=== PATIENT | female | born 1965 | race Caucasian/White ===

== ENCOUNTER 2017-07-28 23:24 | Emergency (ER) | payer BC ==
[~2017-07-28] VITALS: Ht 175.3 cm; Wt 84.4 kg
[~2017-07-28 23:24] MED LIST: AZITHROMYCIN250 MG ORAL; EFFEXOR XR75 MG ORAL; IBUPROFEN600 MG ORAL; SIMVASTATIN5 MG ORAL
[2017-07-28 23:45] VITALS: BP 122/88
[2017-07-29 00:38] LABS: APPEARANCE,URINE CLEAR; KETONES,URINE 2+ (NEGATIVE); LEUKOCYTE ESTERASE ,URINE NEGATIVE (NEGATIVE); NITRITE,URINE NEGATIVE (NEGATIVE); PH,URINE 5 (4.5-8.0); PROTEIN,URINE NEGATIVE (NEGATIVE); UROBILINOGEN,URINE NORMAL MG/DL (0.0-1.0)
[2017-07-29 00:45] VITALS: BP 142/90
[2017-07-29 00:46] LABS: BASOPHILS % (AUTO) 0.7 % (0.0-2.0); EOSINOPHILS % (AUTO) 2.3 % (0.0-3.0); LYMPHOCYTES % (AUTO) 23.7 % (20.0-45.0); MEAN CORPUSCULAR HEMOGLOBIN 33.1 PG (27.0-31.0); MEAN CORPUSCULAR HGB CONC 35.2 G/DL (32.0-36.0); MEAN CORPUSCULAR VOLUME 94 FL (80-99); MEAN PLATELET VOLUME 6.4 FL (6.5-10.1); MONOCYTES % (AUTO) 5.2 % (1.0-10.0); NEUTROPHILS % (AUTO) 68.1 % (45.0-75.0); PLATELET COUNT 309 K/UL (150-450); RED BLOOD COUNT 4.35 M/UL (4.20-5.40); RED CELL DISTRIBUTION WIDTH 11.2 % (11.6-14.8); WHITE BLOOD COUNT 16.4 K/UL (4.8-10.8)
[2017-07-29 00:53] LABS: SQUAMOUS EPITHELIAL CELL,UR OCCASIONAL /LPF (NONE/OCC); WBC,URINE 0 /HPF (0 - 2)
[2017-07-29 01:00] LABS: ALANINE AMINOTRANSFERASE 23 U/L (12-78); ALBUMIN/GLOBULIN RATIO 1.1 (1.0-2.7); ANION GAP 12 mmol/L (5-15); ASPARTATE AMINO TRANSFERASE 19 U/L (15-37); CALCIUM 8.3 MG/DL (8.5-10.1); CARBON DIOXIDE 23 MMOL/L (21-32); CHLORIDE 104 MMOL/L (98-107); CKMB 2.7 NG/ML (0.0-3.6); CREATININE 0.7 MG/DL (0.55-1.30); GLOMERULAR FILTRATION RATE > 60 mL/min (>60); POTASSIUM 3.6 MMOL/L (3.5-5.1); SODIUM 139 MMOL/L (136-145); TOTAL PROTEIN 7.5 G/DL (6.4-8.2)
[2017-07-29 01:45] VITALS: BP 139/88
[2017-07-29] MEDS ORDERED: Ketorolac 30mg Inj IV ONE (01:45)
[2017-07-29] MEDS ORDERED: IBUPROFEN600 MG ORAL (01:56)
--- NOTE | 2017-07-29 01:58 | Emergency Room Report ---
History of Present Illness General Chief Complaint: Chest Pain Source: Patient Present Illness HPI Is a 51-year-old female with history anxiety. She presents with chief complaint of chest pain that occurred about 2 hours prior to arrival. Pain is sharp. Rated around her left breast to the back. Worse with palpation. Worse with inspiration. No nausea no vomiting. No fever or chills. She called 911. EMS gave her aspirin and nitroglycerin without any relief. No exertional component. No diaphoresis. Allergies: Coded Allergies: No Known Allergies (Unverified , 06/28/16) Patient History Past Medical History: see triage record, old chart reviewed, psych hx Past Surgical History: other Pertinent Family History: none Social History: Denies: smoking Last Menstrual Period: none Now: No Immunizations: other Reviewed Nursing Documentation: PMH: Agreed, PSxH: Agreed Nursing Documentation-PMH Hx Hypertension: Yes Review of Systems Eye: Denies: eye pain, blurred vision ENT: Denies: ear pain, nose congestion, throat swelling Respiratory: Denies: cough, shortness of breath Cardiovascular: Reports: chest pain, Denies: palpitations Gastrointestinal: Denies: abdominal pain, diarrhea, nausea, vomiting Musculoskeletal: Denies: back pain, joint pain Skin: Denies: rash Neurological: Denies: headache, numbness Endocrine: Denies: increased thirst, increased urine Hematologic/Lymphatic: Denies: easy bruising All Other Systems: negative except mentioned in HPI Physical Exam Vital Signs Date Time Temp Pulse Resp B/P (MAP) Pulse Ox O2 Delivery O2 Flow Rate FiO2 07/28/17 23:22 99.5 90 20 119/90 100 Room Air vitals normal Sp02 EP Interpretation: reviewed, normal General Appearance: well appearing, no apparent distress, alert Head: normocephalic, atraumatic Eyes: bilateral eye PERRL, bilateral eye EOMI ENT: hearing grossly normal, normal pharynx Neck: full range of motion, supple, no meningismus Respiratory: lungs clear, normal breath sounds, other - Tender to palpation of left chest Cardiovascular #1: regular rate, rhythm, no murmur Gastrointestinal: normal bowel sounds, non tender, no mass, no organomegaly, no bruit, non-distended Musculoskeletal: back normal, gait/station normal, normal range of motion Psychiatric: mood/affect normal Skin: warm/dry Medical Decision Making Diagnostic Impression: Primary Impression: Chest pain Qualified Codes: R07.9 - Chest pain, unspecified ER Course Patient with atypical chest pain. No rash to indicate shingles. She's current taking Augmentin for sinus congestion. No evidence of pneumonia, PE, dissection to name a few. We'll discharge home. Lab Results Impression labs normal EKG Diagnostic Results Rate: normal Rhythm: NSR ST Segments: no acute changes ASA given to the pt in ED: No - By EMS Rhythm Strip Diag. Results Rhythm Strip Time: 01:54 EP Interpretation: yes Rate: 86 Rhythm: NSR, no PVC's, no ectopy Chest X-Ray Diagnostic Results Chest X-Ray Diagnostic Results : Chest X-Ray Ordered: Yes # of Views/Limited/Complete: 1 View Indication: Chest Pain EP Interpretation: Yes Interpretation: no consolidation, no effusion, no pneumothorax Impression: No acute disease Electronically Signed by: Declan Monet MD Last Vital Signs Date Time Temp Pulse Resp B/P (MAP) Pulse Ox O2 Delivery O2 Flow Rate FiO2 07/28/17 23:45 99.5 92 20 122/88 100 Room Air Status: improved Disposition: HOME, SELF-CARE Condition: Stable Scripts Ibuprofen* (MOTRIN*) 600 Mg Tablet 600 MG ORAL THREE TIMES A DAY, #30 TAB 0 Refills Prov: DECLAN MONET M.D. 07/29/17 Referrals: ARNIE NAJERA (PCP) Patient Instructions: Nonspecific Chest Pain Additional Instructions: Followup with your DrLance in 2-3 days. Return if symptom worsen. DECLAN MONET M.D. Jul 29, 2017 01:58
[2017-07-29 02:00] VITALS: BP 139/88
[2017-07-29] MEDS ORDERED: TRAMADOL HCL50 MG ORAL (02:09)
--- NOTE | 2017-07-29 08:35 | Diagnostic Imaging Report ---
Indication: Rest pain Technique: XRAY Chest 1v Comparison: 06/28/2016 Findings: Heart size and mediastinal contours are within normal limits and stable compared to the prior exam. There is no focal consolidation, pneumothorax or pleural effusion. Degenerative changes seen in the thoracic spine. Osseous structures demonstrate no acute abnormality. Impression: No radiographic evidence of acute cardiopulmonary disease. No significant interval change from prior exam.
--- NOTE | 2017-07-30 15:03 | Cardiology Report ---
APPROVED REPORT EKG Measurement Heart [id number] Normal sinus rhythm Possible Left atrial enlargement Borderline ECG
== END 2017-07-29 02:00 | disposition home or self-care (01) ==
LOC: EDBD 23:24 → EMR 23:52
DX: R07.9 Chest pain, unspecified (principal); F41.9 Anxiety disorder, unspecified; I10 Essential (primary) hypertension
CPT/HCPCS: 36415; 71010; 80053; 81003; 82550; 82553; 84484; 85025; 85379; 93005; 96374; 99284; J1885

== ENCOUNTER 2017-08-28 13:16 | Inpatient (IN) | payer BC ==
[~2017-08-28] VITALS: Ht 175.3 cm; Wt 85.7 kg
[~2017-08-28 13:16] MED LIST changes: +TRAMADOL HCL50 MG ORAL
[2017-08-28] MEDS ORDERED: Sodium Chloride 500ML 500 ML IV ONE (13:43)
[2017-08-28] MEDS ORDERED: Nitroglycerin Subl 0.4mg tab SL PRN (13:45)
--- NOTE | 2017-08-28 14:17 | Diagnostic Imaging Report ---
Indication: Chest pain Technique: XRAY Chest 1v Comparison: 07/26/2017 Findings: Heart size and mediastinal contours are stable. There is a subtle asymmetric hazy opacity in the left lung base which may be related to vascular crowding however developing pneumonia is not entirely excluded. Is no pleural effusion or pneumothorax. No acute osseous abnormality seen. Impression: Very subtle asymmetric hazy opacity in the left lower lung which may be related to bronchovascular crowding however developing pneumonia is not entirely excluded. Clinical correlation and follow-up exam recommended.
[2017-08-28 14:48] LABS: BASOPHILS % (AUTO) 0.6 % (0.0-2.0); HEMATOCRIT 42.6 % (37.0-47.0); HEMOGLOBIN 14.2 G/DL (12.0-16.0); LYMPHOCYTES % (AUTO) 23.8 % (20.0-45.0); MEAN CORPUSCULAR VOLUME 95 FL (80-99); NEUTROPHILS % (AUTO) 68.6 % (45.0-75.0); PLATELET COUNT 300 K/UL (150-450); RED BLOOD COUNT 4.48 M/UL (4.20-5.40); RED CELL DISTRIBUTION WIDTH 11.8 % (11.6-14.8); WHITE BLOOD COUNT 13.7 K/UL (4.8-10.8)
[2017-08-28 14:55] LABS: ANION GAP 9 mmol/L (5-15); BLOOD UREA NITROGEN 10 mg/dL (7-18); CALCIUM 9.3 MG/DL (8.5-10.1); CARBON DIOXIDE 25 MMOL/L (21-32); CHLORIDE 108 MMOL/L (98-107); CREATININE 0.6 MG/DL (0.55-1.30); SODIUM 142 MMOL/L (136-145)
[2017-08-28 15:09] LABS: ALANINE AMINOTRANSFERASE 24 U/L (12-78); ALBUMIN 3.9 G/DL (3.4-5.0); ALBUMIN/GLOBULIN RATIO 1.2 (1.0-2.7); ALKALINE PHOSPHATASE 96 U/L (46-116); ASPARTATE AMINO TRANSFERASE 18 U/L (15-37); BILIRUBIN,TOTAL 0.3 MG/DL (0.2-1.0); CKMB 2.3 NG/ML (0.0-3.6); CREATINE KINASE 155 U/L (26-308)
--- NOTE | 2017-08-28 16:10 | Emergency Room Report ---
History of Present Illness General Chief Complaint: Chest Pain Source: Patient Present Illness HPI 51-year-old female presents ED for evaluation. Patient presents to ED complaining of chest pain. Started approximately 40 minutes prior to arrival. Sudden onset. States she feels tightness in her chest, nausea and dizziness. 7 /10, pressure, left-sided, nonradiating. Patient's history of hypertension but is not currently taking any medication. Denies smoking or drug use. No other aggravating relieving factors. Denies any other associated symptoms Allergies: Coded Allergies: No Known Allergies (Unverified , 06/28/16) Patient History Past Medical History: HTN Past Surgical History: none Pertinent Family History: none Social History: Denies: smoking, alcohol use, drug use Now: No Immunizations: UTD Reviewed Nursing Documentation: PMH: Agreed, PSxH: Agreed Nursing Documentation-PMH Hx Hypertension: Yes Review of Systems All Other Systems: negative except mentioned in HPI Physical Exam Vital Signs Date Time Temp Pulse Resp B/P (MAP) Pulse Ox O2 Delivery O2 Flow Rate FiO2 08/28/17 13:20 98.2 103 16 175/101 94 Room Air Sp02 EP Interpretation: reviewed, normal General Appearance: no apparent distress, alert, GCS 15, non-toxic Head: normocephalic, atraumatic Eyes: bilateral eye normal inspection, bilateral eye PERRL ENT: hearing grossly normal, normal pharynx, no angioedema, normal voice Neck: full range of motion, supple/symm/no masses Respiratory: chest non-tender, lungs clear, normal breath sounds, speaking full sentences Cardiovascular #1: regular rate, rhythm, no edema Cardiovascular #2: 2+ carotid (R), 2+ carotid (L), 2+ radial (R), 2+ radial (L) , 2+ dorsalis pedis (R), 2+ dorsalis pedis (L) Gastrointestinal: normal bowel sounds, non tender, soft, non-distended, no guarding, no rebound Rectal: deferred Genitourinary: normal inspection, no CVA tenderness Musculoskeletal: back normal, gait/station normal, normal range of motion, non- tender Neurologic: alert, oriented x3, responsive, motor strength/tone normal, sensory intact, speech normal Psychiatric: judgement/insight normal, memory normal, mood/affect normal, no suicidal/homicidal ideation Reflexes: 3+ bicep (R), 3+ bicep (L), 3+ tricep (R), 3+ tricep (L), 3+ knee (R) , 3+ knee (L) Skin: normal color, no rash, warm/dry, well hydrated Lymphatic: no adenopathy Medical Decision Making Diagnostic Impression: Primary Impression: ACS (acute coronary syndrome) ER Course Hospital Course 51-year-old female presents ED complaining of left-sided chest pain, shortness of breath Differential diagnoses include: GA/unstable angina, contusion, muscle strain, PTX, rib fracture Clinical course Patient placed on stretcher. on electronic device monitor. After initial history and physical I ordered labs, EKG, chest x-ray, NTG labs reviewed- minimal leukocytosis, hb/hct stable, electrolytes ok, trop negative EKG - NSR, no acute ischemic changes interpreted by me Chest x-ray- ?LLL infiltrate Patient states chest pain improved after nitroglycerin. Given aspirin. Given antibiotics. Patient states she's had this chest pain many times and wants to know why Case discussed with Dr Diamond and he agreed to accept the patient to his service for further care and support I. I feel this is a highly complex case requiring extensive working including EKG/Rhythm strip, Xray/CT/US, Blood/urine lab work, repeat exams while in ED, and administration of strong opiates/narcotics for pain control, admission to hospital or close patient follow up. Diagnosis - ACS admitted to telemetry in serious condition Labs Test 08/28/17 11:43 White Blood Count 13.7 K/UL (4.8-10.8) Red Blood Count 4.48 M/UL (4.20-5.40) Hemoglobin 14.2 G/DL (12.0-16.0) Hematocrit 42.6 % (37.0-47.0) Mean Corpuscular Volume 95 FL (80-99) Mean Corpuscular Hemoglobin 31.7 PG (27.0-31.0) Mean Corpuscular Hemoglobin Concent 33.3 G/DL (32.0-36.0) Red Cell Distribution Width 11.8 % (11.6-14.8) Platelet Count 300 K/UL (150-450) Mean Platelet Volume 5.9 FL (6.5-10.1) Neutrophils (%) (Auto) 68.6 % (45.0-75.0) Lymphocytes (%) (Auto) 23.8 % (20.0-45.0) Monocytes (%) (Auto) 5.0 % (1.0-10.0) Eosinophils (%) (Auto) 2.0 % (0.0-3.0) Basophils (%) (Auto) 0.6 % (0.0-2.0) Sodium Level 142 MMOL/L (136-145) Potassium Level 4.0 MMOL/L (3.5-5.1) Chloride Level 108 MMOL/L (98-107) Carbon Dioxide Level 25 MMOL/L (21-32) Anion Gap 9 mmol/L (5-15) Blood Urea Nitrogen 10 mg/dL (7-18) Creatinine 0.6 MG/DL (0.55-1.30) Estimat Glomerular Filtration Rate > 60 mL/min (>60) Glucose Level 96 MG/DL (74-106) Calcium Level 9.3 MG/DL (8.5-10.1) Total Bilirubin 0.3 MG/DL (0.2-1.0) Aspartate Amino Transf (AST/SGOT) 18 U/L (15-37) Alanine Aminotransferase (ALT/SGPT) 24 U/L (12-78) Alkaline Phosphatase 96 U/L (46-116) Total Creatine Kinase 155 U/L (26-308) Creatine Kinase MB 2.3 NG/ML (0.0-3.6) Creatine Kinase MB Relative Index 1.4 Troponin I 0.000 ng/mL (0.000-0.056) Pro-B-Type Natriuretic Peptide 202 pg/mL (0-125) Total Protein 7.1 G/DL (6.4-8.2) Albumin 3.9 G/DL (3.4-5.0) Globulin 3.2 g/dL Albumin/Globulin Ratio 1.2 (1.0-2.7) EKG Diagnostic Results Rate: normal Rhythm: NSR ST Segments: no acute changes ASA given to the pt in ED: Yes Rhythm Strip Diag. Results EP Interpretation: yes Rhythm: NSR, no PVC's, no ectopy Chest X-Ray Diagnostic Results Chest X-Ray Diagnostic Results : Chest X-Ray Ordered: Yes # of Views/Limited/Complete: 1 View Indication: Chest Pain EP Interpretation: Yes Interpretation: no pneumothorax, no acute cardiopulmonary disease, other - LLL infiltrate Impression: Other - ?PNA Electronically Signed by: Electronically signed by Yusuf Roe MD Last Vital Signs Date Time Temp Pulse Resp B/P (MAP) Pulse Ox O2 Delivery O2 Flow Rate FiO2 08/28/17 14:48 137/76 08/28/17 13:20 98.2 103 16 94 Room Air Status: improved Disposition: ADMITTED INPATIENT Condition: Serious Referrals: ARNIE DIAMOND (PCP) YUSUF ROE M.D. Aug 28, 2017 16:10
[2017-08-28 17:39] VITALS: BP 146/80
[2017-08-28] MEDS ORDERED: Zolpidem 5mg tab ORAL PRN ×2 (20:30→22:15)
[2017-08-28] MEDS ORDERED: Lexiscan 0.4mg/5ml syringe IV PRN (20:45)
[2017-08-28] MEDS: Norco 5mg/325mg tab ORAL PRN (21:15)
[2017-08-28] MEDS: Heparin 5000 units/ml inj SUBQ SCH (21:17)
[2017-08-28] MEDS ORDERED: cefTRIAXone 1 GM in NS 55 ML IVPB SCH (22:00)
--- NOTE | 2017-08-28 23:45 | History and Physical Report ---
DATE OF ADMISSION: 08/28/2017 REASON FOR ADMISSION: Chest pain. HISTORY OF PRESENT ILLNESS: The patient is a 51-year-old female, who presents with chest discomfort that started approximately 40 minutes prior to arrival. The patient described it as sudden onset. She felt tightness and dizziness with some radiation. The patient has history of hypertension, but no history of coronary artery disease. The patient is now being admitted for possible acute coronary syndrome. Also, chest x-ray with some questionably vague infiltrates. Otherwise, the patient is without any significant symptoms. PAST MEDICAL HISTORY: Reviewed. MEDICATIONS: Reviewed. ALLERGIES: Reviewed. REVIEW OF SYSTEMS: Otherwise negative with the exception of the above. PHYSICAL EXAMINATION: GENERAL: A well-developed female, otherwise comfortable. VITAL SIGNS: Blood pressure on admission was significantly elevated. Blood pressure 137/76, 98.4 18 74 HEENT: Negative. NECK: Supple. LUNGS: Clear and symmetric. CARDIAC: S1 and S2. Regular rate and rhythm. ABDOMEN: Soft and nontender. EXTREMITIES: No edema. NEUROLOGIC: Grossly nonfocal. LABORATORY AND DIAGNOSTIC DATA: Laboratory data reviewed. Troponin is negative. EKG, without any acute changes. IMPRESSION: Chest pain, possible acute coronary syndrome, mild leukocytosis, possible vague pneumonia, and hypertension. RECOMMENDATIONS: 1. Supportive care. 2. Intravenous antibiotics for possible community-acquired pneumonia. 3. Serial troponins. 4. Cardiac evaluation. 5. Discharge once the patient improves and stable. 6. We will follow clinically for change. Qasim Diamond M.D. DR: GRIS JOB#: [id number] CC: BREONNA
[2017-08-29] VITALS: BP 123/80
[2017-08-29 04:00] VITALS: BP 118/75
--- NOTE | 2017-08-29 04:15 | Consultation ---
DATE OF CONSULTATION: 08/28/2017 CARDIOLOGY CONSULTATION CONSULTING PHYSICIAN: Johan Hilton M.D. ATTENDING/REQUESTING PHYSICIAN: Qasim Diamond M.D. REASON FOR CONSULTATION: Chest pain. HISTORY OF PRESENT ILLNESS: This is a 51-year-old female. She presented to the emergency room with complaints of chest pain that were unprovoked, sudden in onset, and began about 40 minutes prior to her presentation. She noted tightness, nausea, dizziness, left-sided, and nonradiating. She was given nitroglycerin in the emergency room and reportedly improved. PAST MEDICAL HISTORY: Includes hypertension. SOCIAL HISTORY: Negative for smoking, alcohol, or substance abuse. CURRENT MEDICATIONS: None. ALLERGIES: None. FAMILY HISTORY: Noncontributory. REVIEW OF SYSTEMS: A 10-point review of systems performed. All systems negative other than noted. PHYSICAL EXAMINATION: VITAL SIGNS: Afebrile, initial blood pressure 175/101, heart rate 103, and respiratory rate 16. Subsequent vitals, blood pressure 146/80, heart rate 87, respiratory rate 22, and oxygen saturation 98% on room air. HEENT: Normocephalic, atraumatic. Conjunctivae pink. Oropharynx clear. NECK: Supple. LUNGS: Clear. CARDIAC: Regular. Normal S1, S2. No murmur, rub, or gallop. ABDOMEN: Soft. EXTREMITIES: No edema. DIAGNOSTIC AND LABORATORY DATA: EKG revealed sinus rhythm with no acute abnormalities. Troponin level #1 is negative. Chemistry panel and CBC unremarkable with the exception of white count of 13.7. Pro-natriuretic peptide was 202. Chest x-ray, possible left lower lobe infiltrate versus artifact. IMPRESSION: 1. Possible acute coronary syndrome. 2. Possible left lower lobe infiltrate. 3. History of hypertension with malignant range blood pressure on presentation. PLAN: 1. Cardiac monitoring. 2. Serial troponins. 3. Empiric antibiotics. 4. Repeat chest radiograph. 5. Check lipid panel. 6. Titrate antihypertensive regimen for blood pressure management. 7. We will consider Lexiscan for assessment of coronary flow reserve and review. 8. Repeat two-view chest x-ray. Johan Hilton M.D. DR: GERONIMO JOB#: [id number] CC:
[2017-08-29 07:48] LABS: CHOLESTEROL 203 MG/DL (< 200); HDL CHOLESTEROL 27 MG/DL (40-60); TRIGLYCERIDES 254 MG/DL (30-150)
[2017-08-29 08:00] VITALS: BP 120/77
[2017-08-29] MEDS ORDERED: Aspirin Baby 81mg NG SCH (09:00)
[2017-08-29 09:06] LABS: EOSINOPHILS % (AUTO) 5.9 % (0.0-3.0); HEMATOCRIT 41.3 % (37.0-47.0); HEMOGLOBIN 13.5 G/DL (12.0-16.0); LYMPHOCYTES % (AUTO) 47.8 % (20.0-45.0); MEAN CORPUSCULAR VOLUME 96 FL (80-99); MONOCYTES % (AUTO) 5.7 % (1.0-10.0); NEUTROPHILS % (AUTO) 39.5 % (45.0-75.0); PLATELET COUNT 290 K/UL (150-450); RED BLOOD COUNT 4.32 M/UL (4.20-5.40); RED CELL DISTRIBUTION WIDTH 11.9 % (11.6-14.8); WHITE BLOOD COUNT 10.4 K/UL (4.8-10.8)
[2017-08-29] MEDS: Heparin 5000 units/ml inj SUBQ SCH (09:27)
[2017-08-29 12:00] VITALS: BP 117/78
[2017-08-29] MEDS: Norco 5mg/325mg tab ORAL PRN (12:39)
--- NOTE | 2017-08-29 13:03 | Diagnostic Imaging Report ---
Indication: Cough Technique: 2 views of the chest Comparison: 08/28/2017. Findings: Lungs and pleural spaces are clear. Heart size is normal. Bones are unremarkable.. Previously demonstrated left basilar patchy opacity is no longer evident. Impression: No acute process
--- NOTE | 2017-08-29 15:50 | Diagnostic Imaging Report ---
Indications: Chest pain Technique: Single day single isotope protocol utilized. Initially, resting images obtained using IV administration 10.3 millicuries 99M technetium Myoview. Subsequently, patient underwent lexiscan stress testing. See cardiology report for details. During Lexiscan infusion, IV administration 31.4 mCi 99 M technetium Myoview. SPECT and planar images obtained. SPECT images gated to 8 phases of the cardiac cycle were also obtained, and reformatted into cine images for evaluation of ejection fraction. Comparison: none Findings: Per cardiology report, patient experienced nausea, pain in back and neck, dizziness, lightheadedness, and stomach pain during the infusion. Per cardiology report, resting EKG demonstrates normal sinus rhythm. The presence or absence of ST changes during infusion is not described in cardiology report. Imaging demonstrates no fixed nor reversible poststress perfusion defects. Normal cardiac chamber size. Calculated post stress ejection fraction 89%. No focal wall motion abnormality Impression: Nondiagnostic clinical response to pharmacologic stress, per cardiology report Nonischemic electrocardiographic response to pharmacologic stress, per cardiology report No imaging findings to suggest ischemia, at level of stress achieved. Calculated post stress ejection fraction greater than 70%
[2017-08-29 16:00] VITALS: BP 102/68
--- NOTE | 2017-08-29 16:26 | General Progress Note ---
Assessment/Plan Assessment/Plan IMPRESSION: Chest pain, negative stress, mild leukocytosis- resolved, possible vague pneumonia- repeat cxr clear, and hypertension. RECOMMENDATIONS: call in antibiotics dc home reviewed results findings discussed Subjective Allergies: Coded Allergies: No Known Allergies (Unverified , 06/28/16) Subjective care reviewed with patient Objective Last 24 Hour Vital Signs Date Time Temp Pulse Resp B/P (MAP) Pulse Ox O2 Delivery O2 Flow Rate FiO2 08/29/17 16:00 97.0 82 21 102/68 98 Room Air 08/29/17 12:00 97.7 62 20 117/78 98 Room Air 08/29/17 12:00 62 08/29/17 08:00 64 08/29/17 08:00 97.3 65 20 120/77 96 Room Air 08/29/17 04:00 97.7 69 20 118/75 98 Simple Mask 08/29/17 04:00 71 08/29/17 00:00 82 08/29/17 00:00 98.1 72 20 123/80 97 Nasal Cannula 08/28/17 20:00 98.1 79 18 97 Nasal Cannula 08/28/17 20:00 78 08/28/17 17:39 98.4 87 22 146/80 98 Room Air Intake and Output 08/28/17 08/29/17 19:00 07:00 Intake Total 200 ml Balance 200 ml Intake Oral 200 ml Laboratory Tests 08/29/17 05:10: White Blood Count 10.4, Red Blood Count 4.32, Hemoglobin 13.5, Hematocrit 41.3, Mean Corpuscular Volume 96, Mean Corpuscular Hemoglobin 31.4H, Mean Corpuscular Hemoglobin Concent 32.8, Red Cell Distribution Width 11.9, Platelet Count 290, Mean Platelet Volume 6.0L, Neutrophils (%) (Auto) 39.5L, Lymphocytes (%) (Auto) 47.8H, Monocytes (%) (Auto) 5.7, Eosinophils (%) (Auto) 5.9H, Basophils (%) ( Auto) 1.0, Troponin I 0.000, Triglycerides Level 254H, Cholesterol Level 203H, LDL Cholesterol 146H, HDL Cholesterol 27L, Cholesterol/HDL Ratio 7.5H 08/29/17 11:45: Troponin I 0.000 Height (Feet): 5 Height (Inches): 9.00 Weight (Pounds): 189 Objective WDWN NAD clear breath sounds bilaterally without rhonchi or wheeze [id number] without MRG NABS nontender no HSM no CCE nonfocal ARNIE NAJERA Aug 29, 2017 16:26
[2017-08-29] MEDS ORDERED: Tubing IV Secondary IV ONE (17:29)
[2017-08-29] MEDS ORDERED: NS 275ml ONE (17:29)
--- NOTE | 2017-08-29 23:01 | Progress Note ---
DATE: 08/29/2017 CARDIOLOGY PROGRESS NOTE SUBJECTIVE: Chest pain has not recurred. The patient is without shortness of breath. OBJECTIVE: VITAL SIGNS: Blood pressure 117/78, heart rate 62, and respiratory rate 20. LUNGS: Clear. CARDIAC: Regular. Normal S1 and S2. ABDOMEN: Soft. EXTREMITIES: No edema. DIAGNOSTIC DATA: Myocardial perfusion Lexiscan revealed no perfusion defect and normal ejection fraction. Repeat chest x-ray revealed no acute process. IMPRESSION: No signs of acute coronary insufficiency. Chest pain is likely pleuritic. PLAN: Recommend outpatient followup. May continue aspirin prophylaxis fci. No additional cardiovascular studies presently planned. Johan Hilton M.D. DR: GERONIMO JOB#: [id number] CC:
--- NOTE | 2017-08-31 10:23 | Discharge Summary ---
Discharge Summary Hospital Course Date of Admission Aug 28, 2017 at 15:51 Date of Discharge Aug 29, 2017 at 17:30 Admitting Diagnosis ACS HPI Patricia Chairez is a 51 year old female who was admitted on Aug 28, 2017 at 15 :51 for Acute Coronary Syndrome Hospital Course [id number] Discharge Discharge Disposition Patient was discharged to Home (01) Discharge Diagnoses: Adore Reynolds NP Aug 31, 2017 10:23
--- NOTE | 2017-08-31 22:30 | Discharge Summary 2 SIG ---
DATE OF ADMISSION: 08/28/2017 DATE OF DISCHARGE: 08/29/2017 WINERY CELLAR HAND: Johan Hilton M.D. BRIEF HOSPITAL COURSE: The patient is a 51-year-old female with history of hypertension, presented to ED complaining of chest pain that was unprovoked and sudden in onset, began 40 minutes prior to presentation. She experienced chest tightness with nausea and dizziness. Chest pain was left-sided and was nonradiating. On evaluation at ED, she was given aspirin and nitroglycerin with improvement of symptoms. Blood work showed minimal leukocytosis, WBC was 13.7, hemoglobin and hematocrit were stable. Initial troponin was negative. EKG done showed normal sinus rhythm with no acute ischemic changes. Chest x-ray showed hazy opacity in the left lower lung field. She was then admitted to telemetry for chest pain, possible ACS, and possible pneumonia with mild leukocytosis. She underwent cardiac evaluation. Cardiac enzymes were checked. Lipid panel showed LDL of 146, total cholesterol of 203. She was given Lipitor and aspirin. She was started empirically on Rocephin. Cardiac enzymes were negative. She underwent a myocardial perfusion scan. Results were nonischemic with no imaging findings to suggest ischemia. Repeat chest x-ray was clear. She was eventually discharged home. FINAL DIAGNOSES: 1. Chest pain, likely pleuritic. 2. Possible vague pneumonia. 3. Hypertension. 4. Leukocytosis. DISPOSITION: The patient was discharged home. DISCHARGE MEDICATIONS: Refer to medication list. DISCHARGE INSTRUCTIONS: Follow up with PMD in a week. Qasim Diamond M.D. I have been assigned to dictate discharge summary on this account and I was not involved in the patient's management. Adore Reynolds N.P. DR: NAMITA JOB#: [id number] CC:
--- NOTE | 2017-09-06 18:50 | Cardiology Report ---
APPROVED REPORT EKG Measurement Heart [id number] Normal sinus rhythm Normal ECG
== END 2017-08-29 17:30 | disposition home or self-care (01) | DRG 195 ==
LOC: EMR 13:56 → 2E 15:51 → EDBEDREQ 17:28 → 2E 18:40
DX: J18.9 Pneumonia, unspecified organism (principal); I10 Essential (primary) hypertension; R07.81 Pleurodynia
CPT/HCPCS: 36415; 71045; 71046; 78452; 80053; 80061; 82550; 82553; 83880; 84484; 85025; 93005; 93017; 99285; J2405; J2785

== ENCOUNTER 2017-09-25 07:07 | Day surgery (SDC) | payer BC ==
[~2017-09-25] VITALS: Ht 175.3 cm; Wt 83.0 kg
[2017-09-25] VITALS (9 sets, daily range): BP systolic 105–119; BP diastolic 37–76
--- NOTE | 2017-09-25 06:52 | Anethesia Preoperative Eval ---
Anesthesia Pre-op PMH/ROS General Date of Evaluation: Sep 25, 2017 Time of Evaluation: 06:48 Anesthesiologist: tea ASA Score: ASA 3 Mallampati Score Class I : Soft palate, uvula, fauces, pillars visible Class II: Soft palate, uvula, fauces visible Class III: Soft palate, base of uvula visible Class IV: Only hard plate visible Mallampati Classification: Class II Surgeon: az Diagnosis: abdominal pain Surgical Procedure: colonoscopy Anesthesia History: none Social History: current smoker Family History: no anesthesia problems Allergies: Coded Allergies: No Known Allergies (Unverified , 06/28/16) Medications: see eMAR Past Medical History Cardiovascular: Reports: HTN, other - hypercholesterolemia Gastrointestinal/Genitourinary: Reports: other - perforated diverticulitis, bowel surgery 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 Exam Physician Exam Last Vital Signs Date Time Temp Pulse Resp B/P (MAP) Pulse Ox O2 Delivery O2 Flow Rate FiO2 09/25/17 07:45 97.0 76 20 115/76 97 Room Air Constitutional: NAD Neurologic: CN 2-12 intact Cardiovascular: RRR Respiratory: CTA Gastrointestinal: S/NT/ND Airway Exam Mallampati Score: Class II MO: full Neck: supple TMD: 2fb ROM: full Teeth: intact Anesthesia Pre-op A/P Studies Pre-op Studies: EKG - nsr Risk Assessment & Plan Assessment: asa3 Plan: mac Status Change Before Surgery: No Pre-Antibiotics Drug: PALMIRA Sanchez Sep 25, 2017 06:52
[~2017-09-25 07:07] MED LIST changes: +Atropine Inj 1mg/10ml Syr IV PRN; +DiphenhydrAMINE 50mg/ml Inj IVP PRN; +LR 1000ml 1,000 ML IVLG SCH; +Midazolam 2mg/2ml Inj IVP PRN; +fentaNYL 100 mcg/2 mL IV PRN
[2017-09-25] MEDS ORDERED: ZOFRAN8 MG ORAL (07:41)
[2017-09-25] MEDS ORDERED: Propofol 200mg/20ml IV ONE (08:00)
[2017-09-25] MEDS ORDERED: LR 1000ml ONE (08:00)
[2017-09-25] MEDS ORDERED: Lidocaine 1% MPF 10mg/ml 5ml ONE (08:00)
--- NOTE | 2017-09-25 08:17 | Short Stay Surgery H&P ---
History of Present Illness History of Present Illness Chief Complaint See attached H&P HPI Patricia Chairez is a 51 year old female who was admitted on for Abdominal Pain Patient History Allergies: Coded Allergies: No Known Allergies (Unverified , 06/28/16) PAST MEDICAL HISTORY: Past Surgeries: Social History: Medication History Scheduled Ibuprofen* (Motrin*), 600 MG ORAL THREE TIMES A DAY Simvastatin (Zocor), Unknown Dose ORAL BEDTIME, (Reported) Venlafaxine Hcl* (Effexor Xr*), 75 MG ORAL DAILY, (Reported) Scheduled PRN Ondansetron Hcl* (Zofran*), 8 MG ORAL Q8HR PRN for Nausea & Vomiting, (Reported) Discontinued Medications Tramadol Hcl* (Ultram*), 50 MG ORAL Q6H PRN for For Pain Discontinued Reason: Pt stopped taking med Physical Exam Vital Signs Last Vital Signs Date Time Temp Pulse Resp B/P (MAP) Pulse Ox O2 Delivery O2 Flow Rate FiO2 09/25/17 07:45 97.0 76 20 115/76 97 Room Air Plan Attestation Are the patient's medical conditions optimized for surgery? DELLA MENDEZ Sep 25, 2017 08:17
--- NOTE | 2017-09-25 08:17 | Pre-Procedure Note/Attestation ---
Pre-Procedure Note/Attestation Complete Prior to Procedure Planned Procedure: not applicable Procedure Narrative: colon Indications for Procedure Pre-Operative Diagnosis: abd pain Attestation I attest that I discussed the nature of the procedure; its benefits; risks and complications; and alternatives (and the risks and benefits of such alternatives ), prior to the procedure, with the patient (or the patient's legal school admissions representative). I attest that, if there was a reasonable possibility of needing a blood transfusion, the patient (or the patient's legal school admissions representative) was given the [facility] standardized written summary, pursuant to the [place] Blood Safety Act ([place] Health and Safety Code # 1645, as amended). I attest that I re-evaluated the patient just prior to the surgery and that there has been no change in the patient's H&P, except as documented below: DELLA MENDEZ Sep 25, 2017 08:16
--- NOTE | 2017-09-25 13:11 | Endoscopy Procedure Note ---
Endoscopy Procedure Note General Indication for Procedure: abd pain Procedures Performed: colonoscopy Operative Findings/Diagnosis: polyps, tics, sigmoidectomy Specimen: yes Pt Tolerated Procedure Well: Yes Estimated Blood Loss: none Anesthesia Anesthesiologist: see report Anesthesia: MAC Medications Medication Given: see anesthesia record Inserted Devices Implant(s) used?: No GI Core Measures 50 yrs or older w/o bx or poly: Not Applicable 10yrs. F/U not recommended: Not Applicable If not recommended, why?: DELLA MENDEZ Sep 25, 2017 13:11
--- NOTE | 2017-09-25 13:13 | Brief Operative Note ---
Immediate Post Operative Note Operative Note Chief Complaint: abd pain Pre-op Diagnosis: abd pain Procedure: colon, bx, polyp Post-op Diagnosis: polyps, tics, sigmoidectomy Surgeon: bhupendra Anesthesiologist: lala ledesma Specimen: yes Complications: none Condition: stable Fluids: recorded Estimated Blood Loss: none Drains: none Implant(s) used?: No DELLA MENDEZ Sep 25, 2017 13:13
--- NOTE | 2017-09-25 13:40 | 48 Hour Post Anesthesia Eval ---
Post Anesthesia Evaluation Procedure: colonoscopy Date of Evaluation: Sep 25, 2017 Time of Evaluation: 09:14 Blood Pressure Systolic: 110 0: 70 Pulse Rate: 72 Respiratory Rate: 18 Temperature (Fahrenheit): 97.2 O2 Sat by Pulse Oximetry: 100 Airway: patent Nausea: No Vomiting: No Pain Intensity: 0 Hydration Status: adequate Cardiopulmonary Status: stable Mental Status/LOC: patient returned to baseline Post-Anesthesia Complications: none Follow-up care needed: N/A PALMIRA MCNEILL Sep 25, 2017 13:40
--- NOTE | 2017-09-25 13:40 | Immediate Post-Op Evaluation ---
Immediate Post-Op Evalulation Immediate Post-Op Evalulation Procedure: colonoscopy Date of Evaluation: Sep 25, 2017 Time of Evaluation: 09:12 IV Fluids: 6ooml 0.9ns Blood Products: none Estimated Blood Loss: negligible Blood Pressure Systolic: 112 Blood Pressure Diastolic: 69 Pulse Rate: 71 Respiratory Rate: 18 O2 Sat by Pulse Oximetry: 100 Temperature (Fahrenheit): 97.2 Pain Score (1-10): 0 Nausea: No Vomiting: No Complications none Patient Status: awake, reacts, patent Hydration Status: adequate Drug: PALMIRA Sanchez Sep 25, 2017 13:40
--- NOTE | 2017-09-25 20:30 | Procedure Note ---
DATE OF PROCEDURE: 09/25/2017 PROCEDURE: Colonoscopy with biopsy and snare polypectomy. SURGEON: Barbara Cobb M.D. ANESTHESIA: Please see the separate anesthesiologist notes for details. PRE-ENDOSCOPIC DIAGNOSIS: Abdominal pain. POST-ENDOSCOPIC DIAGNOSES: 1. Status post sigmoid partial colectomy as expected based on patient's history. 2. Occasional remaining left-sided diverticulosis. 3. Normal terminal ileum for 10 cm. 4. Normal right colon, status post random biopsies. 5. Status post random biopsy of the left colonic mucosa. 6. Diminutive polyp seen in the sigmoid colon on two occasions, status post biopsy removal as well as snare polypectomy removal. 7. Two diminutive polyps seen in the rectum, status post biopsy removal. DESCRIPTION OF PROCEDURE: The procedure, its risks, indications, alternatives, and possible complications were explained and informed consent was obtained. The diagnostic colonoscope was introduced into the rectum and advanced to the terminal ileum. The colonoscope was then gradually withdrawn. Then, the mucosa was examined carefully. Findings of the procedures were as listed above. There were no inflammatory changes or ulcerations to explain the etiology of the patient's abdominal pain. The patient was sent to recovery in good condition. COMPLICATIONS: None. RECOMMENDATIONS: 1. Follow up biopsy results. 2. Outpatient followup. Barbara Cobb M.D. DR: JEROME JOB#: [id number] CC: Qasim Diamond M.D.; Fax#: [phone]
--- NOTE | 2017-09-26 08:31 | Cardiology Report ---
APPROVED REPORT EKG Measurement Heart [id number] Normal sinus rhythm Normal ECG
== END 2017-09-25 10:35 | disposition home or self-care (01) ==
LOC: GAS 07:07
DX: K63.5 Polyp of colon (principal); K57.90 Diverticulosis of intestine, part unspecified, without perforation or abscess without bleeding; I10 Essential (primary) hypertension; E78.00 Pure hypercholesterolemia, unspecified; K52.9 Noninfective gastroenteritis and colitis, unspecified
CPT/HCPCS: 45380; 93005; J2704; J7120; 94003; 94150